=== PATIENT | male | born 1950 | race Caucasian/White ===

== ENCOUNTER 2025-06-04 13:44 | Outpatient (CLI) | payer MEDICARE, SELFPAY ==
--- NOTE | ~2025-06-04 | PE_ITS ---
EXAMINATION: PET_PETPSMAST_PT DATE: 06/05/2025 07:33 INDICATION: Malignant neoplasm of prostate. TECHNIQUE: 4.429 mCi of Ga-68 gozetotide was administered intravenously. Low dose computed tomography (CT) images were acquired from the base of the brain to the proximal thighs for attenuation correction and anatomic localization. Automated exposure control was employed. Dose-length product (DLP) was 1104 mGy- cm. Positron emission tomography (PET) images were acquired in the same distribution. COMPARISON: None FINDINGS: Head/neck: There are no pathologically enlarged lymph nodes. Chest: The lungs demonstrate mild atelectasis. No pleural effusion. The heart size is normal. There are coronary artery calcifications. No pericardial effusion. There is a small sliding hiatal hernia. There is bilateral gynecomastia. There is subcutaneous fat stranding in the posterior thorax with surgical clips on the right, consistent with inflammation/scarring. Abdomen/pelvis/proximal thighs: The liver, gallbladder, spleen, pancreas, adrenal glands, and kidneys are normal. The prostate is normal in size. There is diffuse increased activity in the prostate with maximum SUV is 24. There is diverticulosis of the colon without evidence of diverticulitis. There is a large volume of stool in the colon. The appendix is normal. There are no pathologically enlarged lymph nodes. There are normal-sized right internal, external, and common iliac nodes and aortocaval nodes with maximum SUV of 27.5. There is no free intraperitoneal fluid. There is no osseous malignancy. IMPRESSION: 1. Normal-sized prostate with increased activity, consistent with primary malignancy. 2. Normal-sized right pelvic and retroperitoneal lymph nodes with increased activity, consistent with metastatic disease. Reviewed, dictated and finalized at location E. IMPRESSION: 1. Normal-sized prostate with increased activity, consistent with primary malig berry. 2. Normal-sized right pelvic and retroperitoneal lymph nodes with increased act ivity, consistent with metastatic disease.
== END 2025-06-04 13:45 | disposition home or self-care (01) ==
PROVIDERS: Visit Provider Urology
DX: C61 Malignant neoplasm of prostate (principal)
CPT/HCPCS: 78815; A9596